=== PATIENT | male | born 1965 | race Caucasian/White ===

== ENCOUNTER → 2017-10-28 | Outpatient (CLI) | payer OTHER ==
[~2017-10-28] MED LIST: AUGMENTIN 875 M1 TAB PO; LORTAB 5/500 501 TAB PO; NAPROSYN 500MG500 MG PO
--- NOTE | 2017-10-28 19:11 | RADIOLOGY REPORT PS360 ---
CERVICAL SPINE 4 OR 5 VIEWS Ordering Physician: Jose Francisco Vergara APRN Patient Age: 52 years: Male HISTORY: RT SHOULDER neck pain right shoulder pain no injury bilateral arm numbness and pain TECHNIQUE: Five-view cervical spine series COMPARISON :None FINDINGS the vertebral bodies are intact and the disc spaces are well-maintained. Normal alignment. Prevertebral soft tissues appear normal. Facets appear satisfactory. Neural foramen appear widely patent. C1-C2 relationships appear normal. Apices the lungs are clear. IMPRESSION: Negative Cervical spine. Intact. Unremarkable.
== END ==
LOC: RAD 15:51
DX: M25.511 Pain in right shoulder (principal)